=== PATIENT | female | born 1935 | race African-American/Black ===

== ENCOUNTER 2020-06-24 10:50 | Inpatient (IN) | payer MEDICARE, MEDICAID ==
[~2020-06-24] VITALS: Ht 162.6 cm; Wt 98.7 kg
[2020-06-24] MEDS ORDERED: DexAMETHasone SOD PHOS 10MG/1ML VIAL INJ IV ONE (14:45)
[2020-06-24] MEDS ORDERED: AZITHROMYCIN 500MG/ 250ML 250 ML IV ONE (14:45)
[2020-06-24 16:37] LABS: Basophils # (auto) 0 10 ^3/uL (0-0.2); Basophils % (auto) 0.3 % (0.0-2.0); Eosinophils # (auto) 0 10 ^3/uL (0-0.8); Hematocrit 42.4 % (36.0-46.0); Hemoglobin 14.3 g/dL (12.2-16.2); Lymphocytes # (auto) 0.6 10 ^3/uL (0.4-5.4); Lymphocytes % (auto) 4.8 % (10.0-50.0); Mean Corpuscular Hemoglobin 30.5 pg (28.0-32.0); Mean Corpuscular Hgb Conc. 33.6 g/dL (32.0-36.0); Mean Corpuscular Volume 90.8 fL (80.0-100.0); Monocytes # (auto) 0.4 10 ^3/uL (0-1.3); Monocytes % (auto) 3.3 % (0.0-12.0); Neutrophils # (auto) 11.5 10 ^3/uL (1.6-8.6); Neutrophils % (auto) 91.6 % (37.0-80.0); Nucleated Red Blood Cells % 2.2 %; Red Blood Cells 4.67 10^6/uL (4.0-5.20); Red Cell Distribution Width 15.8 % (11.8-14.3); White Blood Cell 12.6 10^3/uL (4.4-10.8)
[2020-06-24 16:40] LABS: INR 0.96 (0.9-1.15); Partial Thromboplastin Time 29.7 sec (23.0-31.2)
[2020-06-24 16:49] LABS: BUN/Creatinine Ratio 35.8; Calcium 7.8 mg/dL (8.5-10.1); Potassium 3.1 mmol/L (3.5-5.1)
[2020-06-24 16:55] LABS: Bilirubin, Total 0.9 mg/dL (0.2-1.0)
[2020-06-24] MEDS ORDERED: NITROGLYCERIN 0.4 MG SL TAB SL PRN (17:00)
[2020-06-24] MEDS ORDERED: MORPHINE SULFATE INJECTION 2 MG/ML SYRG IV PRN ×2 (17:00→19:00)
[2020-06-24 17:23] LABS: Albumin 2.2 g/dL (3.4-5.0)
[2020-06-24] MEDS ORDERED: traMADol HCL 50 MG TAB PO PRN (19:00)
[2020-06-24] MEDS ORDERED: ONDANSETRON HCL 4 MG/2 ML VIAL IV PRN (19:00)
[2020-06-24] MEDS ORDERED: ACETAMINOPHEN 500 MG TAB PO PRN (19:00)
[2020-06-24] MEDS ORDERED: cefTRIAXone 1GM/50ML D5W 50 ML IV ONE (19:00)
[2020-06-24] MEDS: SODIUM CHLORIDE 0.9% 1,000 ML IV SCH (20:43)
[2020-06-24] MEDS: BUDESONIDE (INHALATION) 180 MCG IH IN SCH (22:00)
[2020-06-24] MEDS: ATORVASTATIN 20 MG TAB PO SCH (23:32)
[2020-06-25] MEDS: SODIUM CHLORIDE 0.9% 1,000 ML IV SCH ×2 (05:49→15:04)
[2020-06-25 07:37] LABS: Basophils # (auto) 0 10 ^3/uL (0-0.2); Basophils % (auto) 0.2 % (0.0-2.0); Eosinophils # (auto) 0 10 ^3/uL (0-0.8); Hemoglobin 13.2 g/dL (12.2-16.2); Lymphocytes # (auto) 0.7 10 ^3/uL (0.4-5.4); Lymphocytes % (auto) 4.7 % (10.0-50.0); Mean Corpuscular Hemoglobin 29.4 pg (28.0-32.0); Mean Corpuscular Hgb Conc. 32.2 g/dL (32.0-36.0); Mean Corpuscular Volume 91.2 fL (80.0-100.0); Monocytes # (auto) 0.3 10 ^3/uL (0-1.3); Monocytes % (auto) 2.3 % (0.0-12.0); Neutrophils % (auto) 92.8 % (37.0-80.0); Nucleated Red Blood Cells % 1.9 %; Red Cell Distribution Width 15.9 % (11.8-14.3)
[2020-06-25 08:00] LABS: Calcium 7.5 mg/dL (8.5-10.1); Potassium 3.2 mmol/L (3.5-5.1)
[2020-06-25 08:04] LABS: Albumin 2.1 g/dL (3.4-5.0); BUN/Creatinine Ratio 40.2
[2020-06-25 08:08] LABS: Bilirubin, Total 0.7 mg/dL (0.2-1.0); Total Protein 7.7 g/dL (6.4-8.2)
[2020-06-25] MEDS: cefTRIAXone 1GM/50ML D5W 50 ML IV SCH (08:48)
[2020-06-25] MEDS: BUDESONIDE (INHALATION) 180 MCG IH IN SCH ×2 (09:33→19:41)
[2020-06-25] MEDS: DexAMETHasone SOD PHOS 10MG/1ML VIAL INJ IV SCH (10:03)
[2020-06-25] MEDS: AZITHROMYCIN 500MG/ 250ML 250 ML IV SCH (10:03)
[2020-06-25] MEDS: CHOLECALCIFEROL (VITD3) 2,000 UNIT CAP/TAB PO SCH (10:04)
[2020-06-25] MEDS: ZINC SULFATE 220mg CAP or TAB PO SCH (10:04)
[2020-06-25] MEDS: ASCORBIC ACID 1,000 MG TAB PO SCH (10:04)
[2020-06-25] MEDS: ENOXAPARIN SOD 30 MG/0.3 ML SYRINGE SC SCH (10:05)
[2020-06-25 10:53] LABS: Urine Bacteria FEW /hpf (None Seen); Urine Blood 1+ /uL (Negative); Urine Specific Gravity 1.012 (1.001-1.035); Urine WBC 309 /hpf (0 - 5); Urine WBC Clumps PRESENT /hpf (None Seen)
[2020-06-25 11:06] LABS: Creatinine, Urine 111 mg/dL (30.0-125.0); Sodium Urine 13 mmol/L (40-220)
[2020-06-25] MEDS ORDERED: FUROSEMIDE 100 MG/10ML VIAL IV ONE (18:45)
[2020-06-25] MEDS: DOPamine 1600MCG/ML D5W 250 ML IV SCH (19:37)
[2020-06-25] MEDS: ATORVASTATIN 20 MG TAB PO SCH (22:50)
[2020-06-26] MEDS: SODIUM CHLORIDE 0.9% 1,000 ML IV SCH ×3 (02:13→21:15)
[2020-06-26 07:40] LABS: Eosinophils # (auto) 0 10 ^3/uL (0-0.8); Monocytes # (auto) 0.7 10 ^3/uL (0-1.3)
[2020-06-26 07:43] LABS: Basophils # (auto) 0 10 ^3/uL (0-0.2); Basophils % (auto) 0.1 % (0.0-2.0); Hematocrit 41.5 % (36.0-46.0); Hemoglobin 13.7 g/dL (12.2-16.2); Lymphocytes # (auto) 0.8 10 ^3/uL (0.4-5.4); Lymphocytes % (auto) 4.4 % (10.0-50.0); Mean Corpuscular Hemoglobin 30.4 pg (28.0-32.0); Mean Corpuscular Hgb Conc. 33.1 g/dL (32.0-36.0); Mean Corpuscular Volume 91.8 fL (80.0-100.0); Monocytes % (auto) 3.7 % (0.0-12.0); Neutrophils # (auto) 16.2 10 ^3/uL (1.6-8.6); Neutrophils % (auto) 91.8 % (37.0-80.0); Nucleated Red Blood Cells % 1.8 %; Red Blood Cells 4.52 10^6/uL (4.0-5.20); Red Cell Distribution Width 16.3 % (11.8-14.3); White Blood Cell 17.7 10^3/uL (4.4-10.8)
[2020-06-26 08:02] LABS: Potassium 3.1 mmol/L (3.5-5.1)
[2020-06-26 08:13] LABS: Albumin 2.2 g/dL (3.4-5.0); BUN/Creatinine Ratio 47.2; Calcium 7.9 mg/dL (8.5-10.1)
[2020-06-26 08:16] LABS: Bilirubin, Total 0.5 mg/dL (0.2-1.0); Total Protein 8.2 g/dL (6.4-8.2)
[2020-06-26] MEDS: cefTRIAXone 1GM/50ML D5W 50 ML IV SCH (09:17)
[2020-06-26] MEDS: DexAMETHasone SOD PHOS 10MG/1ML VIAL INJ IV SCH (09:17)
[2020-06-26] MEDS: ASCORBIC ACID 1,000 MG TAB PO SCH (09:17)
[2020-06-26] MEDS: CHOLECALCIFEROL (VITD3) 2,000 UNIT CAP/TAB PO SCH (09:17)
[2020-06-26] MEDS: ZINC SULFATE 220mg CAP or TAB PO SCH (09:17)
[2020-06-26] MEDS: ENOXAPARIN SOD 30 MG/0.3 ML SYRINGE SC SCH (09:17)
[2020-06-26] MEDS: AZITHROMYCIN 500MG/ 250ML 250 ML IV SCH (10:23)
[2020-06-26 19:00] VITALS: BP 125/53
[2020-06-26] MEDS: DOPamine 1600MCG/ML D5W 250 ML IV SCH (19:12)
[2020-06-26] MEDS: SODIUM CHLOR 0.9% PF (SALINE LOCK) 10ML VIAL/SYR IV SCH (21:15)
[2020-06-26] MEDS: ATORVASTATIN 20 MG TAB PO SCH (21:15)
[2020-06-26] MEDS: BUDESONIDE (INHALATION) 180 MCG IH IN SCH ×2 (21:18→22:00)
[2020-06-27 03:18] VITALS: BP 125/53
[2020-06-27] MEDS: BUDESONIDE (INHALATION) 180 MCG IH IN SCH ×4 (06:22→18:19)
[2020-06-27] MEDS: SODIUM CHLORIDE 0.9% 1,000 ML IV SCH ×2 (07:00→16:05)
[2020-06-27 07:04] LABS: Hematocrit 39.4 % (36.0-46.0); Hemoglobin 13.2 g/dL (12.2-16.2); Mean Corpuscular Hemoglobin 30.3 pg (28.0-32.0); Mean Corpuscular Hgb Conc. 33.6 g/dL (32.0-36.0); Mean Corpuscular Volume 90.1 fL (80.0-100.0); Red Blood Cells 4.37 10^6/uL (4.0-5.20); White Blood Cell 12.1 10^3/uL (4.4-10.8)
[2020-06-27 07:26] LABS: Potassium 3.1 mmol/L (3.5-5.1)
[2020-06-27 07:31] LABS: Albumin 1.9 g/dL (3.4-5.0); BUN/Creatinine Ratio 47.2; Bilirubin, Total 0.6 mg/dL (0.2-1.0); Calcium 7.7 mg/dL (8.5-10.1); Total Protein 7.7 g/dL (6.4-8.2)
[2020-06-27 07:43] LABS: Blast Cells 0; Eosinophils % (manual) 0 (0-7); Promyelocytes % 0; Reactive Lymphocytes 0
[2020-06-27 07:54] VITALS: BP 124/80
[2020-06-27 08:45] LABS: Band Neutrophils % (manual) 6; Basophils % (manual) 1 (0.0-2.0); Lymphocytes % (manual) 3 (10.0-50.0); Metamyelocytes % 1; Monocytes % (manual) 3 (0-12); Myelocytes % 1
[2020-06-27] MEDS: cefTRIAXone 1GM/50ML D5W 50 ML IV SCH (09:00)
[2020-06-27] MEDS: CHOLECALCIFEROL (VITD3) 2,000 UNIT CAP/TAB PO SCH (10:00)
[2020-06-27] MEDS: SODIUM CHLOR 0.9% PF (SALINE LOCK) 10ML VIAL/SYR IV SCH ×2 (10:00→20:49)
[2020-06-27] MEDS: ASCORBIC ACID 1,000 MG TAB PO SCH (10:00)
[2020-06-27] MEDS: AZITHROMYCIN 500MG/ 250ML 250 ML IV SCH (10:00)
[2020-06-27] MEDS: ZINC SULFATE 220mg CAP or TAB PO SCH (10:00)
[2020-06-27] MEDS: ENOXAPARIN SOD 30 MG/0.3 ML SYRINGE SC SCH (10:00)
[2020-06-27] MEDS: DexAMETHasone SOD PHOS 10MG/1ML VIAL INJ IV SCH (12:16)
[2020-06-27] MEDS ORDERED: POTASSIUM EFFERVESENT TAB 25 MEQ PO ONE ×2 (13:00→13:15)
[2020-06-27 15:49] VITALS: BP 136/72
[2020-06-27] MEDS ORDERED: LORazepam 2MG/ML-1ML VIAL IV PRN (16:00)
[2020-06-27 16:14] LABS: Creatinine, Urine 129 mg/dL (30.0-125.0); Sodium Urine 11 mmol/L (40-220)
[2020-06-27] MEDS: ALBUTEROL SULF HFA 90MCG INH 200DOSE IN PRN (18:19)
[2020-06-27 18:26] VITALS: BP 127/79
[2020-06-27] MEDS: ATORVASTATIN 20 MG TAB PO SCH (20:49)
[2020-06-28] VITALS: BP 131/88
[2020-06-28] MEDS ORDERED: MONT10TA23 PO (02:39)
[2020-06-28] MEDS ORDERED: ATOR20TA PO (02:39)
[2020-06-28] MEDS ORDERED: METO25TA93 PO (02:39)
[2020-06-28] MEDS ORDERED: HYDR25TA4 PO (02:39)
[2020-06-28] MEDS ORDERED: LEVO25TA6 PO (02:39)
[2020-06-28] MEDS ORDERED: AMLO-489 PO (02:39)
[2020-06-28] MEDS ORDERED: ALLO100T PO (02:39)
[2020-06-28] MEDS ORDERED: CHOL20007 PO (02:39)
[2020-06-28] MEDS ORDERED: ALEN70TA74 PO (02:39)
[2020-06-28] MEDS: SODIUM CHLORIDE 0.9% 1,000 ML IV SCH ×3 (04:35→23:03)
[2020-06-28] MEDS: BUDESONIDE (INHALATION) 180 MCG IH IN SCH ×3 (06:30→20:18)
[2020-06-28 06:57] LABS: Hematocrit 43.9 % (36.0-46.0); Hemoglobin 14.4 g/dL (12.2-16.2); Mean Corpuscular Hemoglobin 29.5 pg (28.0-32.0); Mean Corpuscular Hgb Conc. 32.9 g/dL (32.0-36.0); Mean Corpuscular Volume 89.8 fL (80.0-100.0); Red Blood Cells 4.89 10^6/uL (4.0-5.20); Red Cell Distribution Width 16.2 % (11.8-14.3); White Blood Cell 13.3 10^3/uL (4.4-10.8)
[2020-06-28 07:03] LABS: Basophils % (manual) 0 (0.0-2.0); Blast Cells 0; Eosinophils % (manual) 0 (0-7); Promyelocytes % 0; Reactive Lymphocytes 0
[2020-06-28] MEDS: ALBUTEROL SULF HFA 90MCG INH 200DOSE IN PRN ×2 (07:05→20:18)
[2020-06-28 07:42] LABS: Band Neutrophils % (manual) 5; Lymphocytes % (manual) 10 (10.0-50.0); Metamyelocytes % 1; Monocytes % (manual) 2 (0-12); Myelocytes % 2
[2020-06-28 08:00] VITALS: BP 112/70
[2020-06-28] MEDS ORDERED: POTASSIUM CHL 20MEQ/100ML 100 ML IV ONE (09:30)
[2020-06-28] MEDS: ZINC SULFATE 220mg CAP or TAB PO SCH (09:57)
[2020-06-28] MEDS: SODIUM CHLOR 0.9% PF (SALINE LOCK) 10ML VIAL/SYR IV SCH ×2 (09:57→22:10)
[2020-06-28] MEDS: cefTRIAXone 1GM/50ML D5W 50 ML IV SCH (09:57)
[2020-06-28] MEDS: DexAMETHasone SOD PHOS 10MG/1ML VIAL INJ IV SCH (09:57)
[2020-06-28] MEDS: ASCORBIC ACID 1,000 MG TAB PO SCH (09:58)
[2020-06-28] MEDS: ENOXAPARIN SOD 30 MG/0.3 ML SYRINGE SC SCH (09:58)
[2020-06-28] MEDS: CHOLECALCIFEROL (VITD3) 2,000 UNIT CAP/TAB PO SCH (09:58)
[2020-06-28] MEDS: AZITHROMYCIN 500MG/ 250ML 250 ML IV SCH (11:07)
[2020-06-28 11:08] LABS: Potassium 4.2 mmol/L (3.5-5.1)
[2020-06-28 11:19] LABS: BUN/Creatinine Ratio 46.8; Calcium 8.4 mg/dL (8.5-10.1)
[2020-06-28] MEDS ORDERED: guaiFENesin-DM 100/10mg/5ml SYR PO PRN (12:00)
[2020-06-28] MEDS: ENSURE CLEAR Mixed Berry 8oz Carton PO SCH ×2 (13:55→18:11)
[2020-06-28 16:00] VITALS: BP 122/73
[2020-06-28] MEDS: DOPamine 1600MCG/ML D5W 250 ML IV SCH ×2 (17:54)
[2020-06-28] MEDS: FUROSEMIDE 100 MG/10ML VIAL IV SCH (17:55)
[2020-06-28] MEDS: ATORVASTATIN 20 MG TAB PO SCH (22:11)
[2020-06-29] VITALS: BP 115/78
[2020-06-29] MEDS: FUROSEMIDE 100 MG/10ML VIAL IV SCH ×2 (06:00→18:00)
[2020-06-29] MEDS: BUDESONIDE (INHALATION) 180 MCG IH IN SCH ×2 (06:05→19:17)
[2020-06-29 06:06] LABS: Mean Corpuscular Volume 90.7 fL (80.0-100.0)
[2020-06-29 06:16] LABS: Hemoglobin 14.1 g/dL (12.2-16.2); Mean Corpuscular Hemoglobin 30.5 pg (28.0-32.0); Mean Corpuscular Hgb Conc. 33.6 g/dL (32.0-36.0); Red Blood Cells 4.62 10^6/uL (4.0-5.20); Red Cell Distribution Width 16.2 % (11.8-14.3); White Blood Cell 13.5 10^3/uL (4.4-10.8)
[2020-06-29 06:30] LABS: Potassium 4.2 mmol/L (3.5-5.1)
[2020-06-29 06:36] LABS: BUN/Creatinine Ratio 56.5; Calcium 8.4 mg/dL (8.5-10.1)
[2020-06-29] MEDS: DOPamine 1600MCG/ML D5W 250 ML IV SCH ×2 (06:53→20:34)
[2020-06-29 06:56] LABS: Band Neutrophils % (manual) 0; Basophils % (manual) 0 (0.0-2.0); Blast Cells 0; Eosinophils % (manual) 0 (0-7); Metamyelocytes % 0; Myelocytes % 0; Promyelocytes % 0; Reactive Lymphocytes 0
[2020-06-29 08:00] VITALS: BP 114/77
[2020-06-29] MEDS: ENSURE CLEAR Mixed Berry 8oz Carton PO SCH ×3 (08:00→18:00)
[2020-06-29] MEDS: cefTRIAXone 1GM/50ML D5W 50 ML IV SCH (09:52)
[2020-06-29] MEDS: SODIUM CHLOR 0.9% PF (SALINE LOCK) 10ML VIAL/SYR IV SCH ×2 (09:52→21:24)
[2020-06-29] MEDS: ASCORBIC ACID 1,000 MG TAB PO SCH (09:53)
[2020-06-29] MEDS: SODIUM CHLORIDE 0.9% 1,000 ML IV SCH ×2 (09:53→18:34)
[2020-06-29] MEDS: CHOLECALCIFEROL (VITD3) 2,000 UNIT CAP/TAB PO SCH (09:53)
[2020-06-29] MEDS: ENOXAPARIN SOD 30 MG/0.3 ML SYRINGE SC SCH (09:53)
[2020-06-29] MEDS: ZINC SULFATE 220mg CAP or TAB PO SCH (09:53)
[2020-06-29 11:42] LABS: Lymphocytes % (manual) 5 (10.0-50.0); Monocytes % (manual) 4 (0-12)
[2020-06-29] MEDS: AZITHROMYCIN 500MG/ 250ML 250 ML IV SCH (11:49)
[2020-06-29 15:52] VITALS: BP 113/72
[2020-06-29] MEDS: ALBUTEROL SULF HFA 90MCG INH 200DOSE IN PRN (19:17)
[2020-06-29] MEDS: ATORVASTATIN 20 MG TAB PO SCH (21:24)
[2020-06-30] VITALS: BP 129/84
[2020-06-30] MEDS: FUROSEMIDE 100 MG/10ML VIAL IV SCH (05:34)
[2020-06-30 07:17] LABS: Calcium 8.5 mg/dL (8.5-10.1); Potassium 4.3 mmol/L (3.5-5.1)
[2020-06-30 07:20] LABS: BUN/Creatinine Ratio 54.3
[2020-06-30 08:00] VITALS: BP 126/69
[2020-06-30] MEDS: ENSURE CLEAR Mixed Berry 8oz Carton PO SCH ×3 (09:46→19:04)
[2020-06-30] MEDS: AZITHROMYCIN 500MG/ 250ML 250 ML IV SCH (09:47)
[2020-06-30] MEDS: cefTRIAXone 1GM/50ML D5W 50 ML IV SCH (09:47)
[2020-06-30] MEDS: BUDESONIDE (INHALATION) 180 MCG IH IN SCH ×2 (09:47→22:16)
[2020-06-30] MEDS: ZINC SULFATE 220mg CAP or TAB PO SCH (09:47)
[2020-06-30] MEDS: SODIUM CHLOR 0.9% PF (SALINE LOCK) 10ML VIAL/SYR IV SCH ×2 (09:47→22:00)
[2020-06-30] MEDS: ASCORBIC ACID 1,000 MG TAB PO SCH (09:48)
[2020-06-30] MEDS: CHOLECALCIFEROL (VITD3) 2,000 UNIT CAP/TAB PO SCH (09:48)
[2020-06-30] MEDS: ENOXAPARIN SOD 30 MG/0.3 ML SYRINGE SC SCH (09:48)
[2020-06-30] MEDS: DOPamine 1600MCG/ML D5W 250 ML IV SCH (10:06)
[2020-06-30 16:00] VITALS: BP 137/75
[2020-06-30] MEDS: ATORVASTATIN 20 MG TAB PO SCH (21:16)
[2020-06-30] MEDS: ALBUTEROL SULF HFA 90MCG INH 200DOSE IN PRN (22:16)
[2020-07-01] VITALS: BP 148/113
[2020-07-01] MEDS: ALBUTEROL SULF HFA 90MCG INH 200DOSE IN PRN ×2 (06:22→20:45)
[2020-07-01 08:00] VITALS: BP 120/80
[2020-07-01] MEDS: BUDESONIDE (INHALATION) 180 MCG IH IN SCH ×2 (09:08→20:45)
[2020-07-01] MEDS: ENSURE CLEAR Mixed Berry 8oz Carton PO SCH ×3 (09:08→18:00)
[2020-07-01] MEDS: cefTRIAXone 1GM/50ML D5W 50 ML IV SCH (09:08)
[2020-07-01] MEDS: ASCORBIC ACID 1,000 MG TAB PO SCH (09:09)
[2020-07-01] MEDS: ZINC SULFATE 220mg CAP or TAB PO SCH (09:09)
[2020-07-01] MEDS: AZITHROMYCIN 500MG/ 250ML 250 ML IV SCH (09:09)
[2020-07-01] MEDS: SODIUM CHLOR 0.9% PF (SALINE LOCK) 10ML VIAL/SYR IV SCH ×2 (09:09→21:10)
[2020-07-01] MEDS: CHOLECALCIFEROL (VITD3) 2,000 UNIT CAP/TAB PO SCH (09:10)
[2020-07-01] MEDS: ENOXAPARIN SOD 30 MG/0.3 ML SYRINGE SC SCH ×2 (09:10→21:10)
[2020-07-01] MEDS: FUROSEMIDE 100 MG/10ML VIAL IV SCH (09:30)
[2020-07-01 16:00] VITALS: BP 122/85
[2020-07-01] MEDS: D5W 5% 1,000 ML IV SCH (19:06)
[2020-07-01] MEDS: ATORVASTATIN 20 MG TAB PO SCH (21:10)
[2020-07-02] VITALS: BP 122/77
[2020-07-02] MEDS: BUDESONIDE (INHALATION) 180 MCG IH IN SCH ×2 (07:41→18:42)
[2020-07-02] MEDS: ALBUTEROL SULF HFA 90MCG INH 200DOSE IN PRN ×2 (07:42→18:42)
[2020-07-02 08:00] VITALS: BP 122/81
[2020-07-02 08:00] LABS: Calcium 9.3 mg/dL (8.5-10.1); Potassium 3.7 mmol/L (3.5-5.1)
[2020-07-02 08:02] LABS: BUN/Creatinine Ratio 47.6
[2020-07-02] MEDS: ENSURE CLEAR Mixed Berry 8oz Carton PO SCH ×3 (08:40→18:12)
[2020-07-02] MEDS: D5W 5% 1,000 ML IV SCH ×2 (08:40→21:24)
[2020-07-02 08:55] LABS: CRP High Sensitivity 7.93 mg/dL (< 0.3)
[2020-07-02] MEDS: SODIUM CHLOR 0.9% PF (SALINE LOCK) 10ML VIAL/SYR IV SCH ×2 (09:43→21:23)
[2020-07-02] MEDS: cefTRIAXone 1GM/50ML D5W 50 ML IV SCH (09:43)
[2020-07-02] MEDS: FUROSEMIDE 100 MG/10ML VIAL IV SCH (09:43)
[2020-07-02] MEDS: ZINC SULFATE 220mg CAP or TAB PO SCH (09:44)
[2020-07-02] MEDS: AZITHROMYCIN 500MG/ 250ML 250 ML IV SCH (09:44)
[2020-07-02] MEDS: ASCORBIC ACID 1,000 MG TAB PO SCH (09:44)
[2020-07-02] MEDS: ENOXAPARIN SOD 30 MG/0.3 ML SYRINGE SC SCH (09:44)
[2020-07-02] MEDS: CHOLECALCIFEROL (VITD3) 2,000 UNIT CAP/TAB PO SCH (09:44)
[2020-07-02 15:47] VITALS: BP 127/78
[2020-07-02] MEDS: ATORVASTATIN 20 MG TAB PO SCH (21:24)
[2020-07-02] MEDS: methylPREDNISolone SOD SUCC 40 MG/ML VL IV SCH (21:24)
[2020-07-03] VITALS: BP 128/79
[2020-07-03] MEDS: D5W 5% 1,000 ML IV SCH ×4 (00:03→18:10)
[2020-07-03] MEDS: BUDESONIDE (INHALATION) 180 MCG IH IN SCH ×2 (06:02→18:56)
[2020-07-03] MEDS: ALBUTEROL SULF HFA 90MCG INH 200DOSE IN PRN ×2 (06:03→18:57)
[2020-07-03 08:00] VITALS: BP 129/81
[2020-07-03] MEDS: ENSURE CLEAR Mixed Berry 8oz Carton PO SCH ×3 (08:00→18:10)
[2020-07-03] MEDS: cefTRIAXone 1GM/50ML D5W 50 ML IV SCH (09:32)
[2020-07-03] MEDS: ASCORBIC ACID 1,000 MG TAB PO SCH (09:33)
[2020-07-03] MEDS: SODIUM CHLOR 0.9% PF (SALINE LOCK) 10ML VIAL/SYR IV SCH ×2 (09:33→23:50)
[2020-07-03] MEDS: methylPREDNISolone SOD SUCC 40 MG/ML VL IV SCH ×2 (09:33→23:50)
[2020-07-03] MEDS: AZITHROMYCIN 500MG/ 250ML 250 ML IV SCH (09:33)
[2020-07-03] MEDS: ZINC SULFATE 220mg CAP or TAB PO SCH (09:33)
[2020-07-03] MEDS: CHOLECALCIFEROL (VITD3) 2,000 UNIT CAP/TAB PO SCH (09:34)
[2020-07-03] MEDS: ENOXAPARIN SOD 40 MG/0.4 ML SYRINGE SC SCH (09:34)
[2020-07-03] MEDS ORDERED: FUROSEMIDE 40 MG/4 ML VIAL IV SCH (10:00)
[2020-07-03] MEDS ORDERED: diphenhdrAMINE HCL 50 MG/1 ML VL IV PRN (11:00)
[2020-07-03] MEDS: DOPamine 1600MCG/ML D5W 250 ML IV SCH (13:55)
[2020-07-03] MEDS: FREE WATER GT SCH ×3 (14:00→23:49)
[2020-07-03 16:00] VITALS: BP 116/78
[2020-07-03] MEDS: ATORVASTATIN 20 MG TAB PO SCH (23:50)
[2020-07-04] VITALS: BP 127/64
[2020-07-04] MEDS: D5W 5% 1,000 ML IV SCH ×2 (02:44→07:15)
[2020-07-04] MEDS: FREE WATER GT SCH ×6 (02:44→22:26)
[2020-07-04 06:45] LABS: Basophils # (auto) 0 10 ^3/uL (0-0.2); Basophils % (auto) 0.3 % (0.0-2.0); Eosinophils # (auto) 0 10 ^3/uL (0-0.8); Hematocrit 39.2 % (36.0-46.0); Hemoglobin 12.4 g/dL (12.2-16.2); Lymphocytes # (auto) 0.5 10 ^3/uL (0.4-5.4); Lymphocytes % (auto) 4.5 % (10.0-50.0); Mean Corpuscular Hemoglobin 29.1 pg (28.0-32.0); Mean Corpuscular Hgb Conc. 31.7 g/dL (32.0-36.0); Mean Corpuscular Volume 91.8 fL (80.0-100.0); Monocytes # (auto) 0.2 10 ^3/uL (0-1.3); Neutrophils # (auto) 10.5 10 ^3/uL (1.6-8.6); Neutrophils % (auto) 93.2 % (37.0-80.0); Nucleated Red Blood Cells % 0.4 %; Red Blood Cells 4.27 10^6/uL (4.0-5.20); White Blood Cell 11.3 10^3/uL (4.4-10.8)
[2020-07-04 07:05] LABS: Calcium 8.6 mg/dL (8.5-10.1); Potassium 3.6 mmol/L (3.5-5.1)
[2020-07-04 07:07] LABS: BUN/Creatinine Ratio 47.7
[2020-07-04 08:00] VITALS: BP 131/75
[2020-07-04] MEDS: ENSURE CLEAR Mixed Berry 8oz Carton PO SCH ×3 (08:00→18:11)
[2020-07-04] MEDS: BUDESONIDE (INHALATION) 180 MCG IH IN SCH ×2 (08:46→19:31)
[2020-07-04] MEDS: ALBUTEROL SULF HFA 90MCG INH 200DOSE IN PRN ×2 (08:46→19:32)
[2020-07-04] MEDS: cefTRIAXone 1GM/50ML D5W 50 ML IV SCH (09:00)
[2020-07-04] MEDS: methylPREDNISolone SOD SUCC 40 MG/ML VL IV SCH ×2 (10:00→22:26)
[2020-07-04] MEDS: SODIUM CHLOR 0.9% PF (SALINE LOCK) 10ML VIAL/SYR IV SCH ×2 (10:00→22:26)
[2020-07-04] MEDS: ENOXAPARIN SOD 40 MG/0.4 ML SYRINGE SC SCH ×2 (10:00→22:27)
[2020-07-04] MEDS: ASCORBIC ACID 1,000 MG TAB PO SCH (10:00)
[2020-07-04] MEDS: CHOLECALCIFEROL (VITD3) 2,000 UNIT CAP/TAB PO SCH (10:00)
[2020-07-04] MEDS: AZITHROMYCIN 500MG/ 250ML 250 ML IV SCH (10:00)
[2020-07-04] MEDS: ZINC SULFATE 220mg CAP or TAB PO SCH (10:00)
[2020-07-04] MEDS: DOPamine 1600MCG/ML D5W 250 ML IV SCH (11:15)
[2020-07-04] MEDS: SOD CHL 0.45% 1,000 ML IV SCH ×2 (11:45→21:09)
[2020-07-04 16:00] VITALS: BP 110/62
[2020-07-04] MEDS: ATORVASTATIN 20 MG TAB PO SCH (22:27)
[2020-07-05] VITALS (8 sets, daily range): BP systolic 118–130; BP diastolic 70–81
[2020-07-05] MEDS: FREE WATER GT SCH ×6 (02:10→21:27)
[2020-07-05] MEDS: SOD CHL 0.45% 1,000 ML IV SCH ×3 (02:10→20:59)
[2020-07-05] MEDS: BUDESONIDE (INHALATION) 180 MCG IH IN SCH ×2 (07:05→19:38)
[2020-07-05] MEDS: ENSURE CLEAR Mixed Berry 8oz Carton PO SCH ×3 (08:00→18:00)
[2020-07-05 08:22] LABS: Potassium 3.7 mmol/L (3.5-5.1)
[2020-07-05 08:44] LABS: BUN/Creatinine Ratio 49.2; Calcium 8.4 mg/dL (8.5-10.1)
[2020-07-05] MEDS: cefTRIAXone 1GM/50ML D5W 50 ML IV SCH (09:30)
[2020-07-05] MEDS: ENOXAPARIN SOD 40 MG/0.4 ML SYRINGE SC SCH ×2 (09:31→21:00)
[2020-07-05] MEDS: ZINC SULFATE 220mg CAP or TAB PO SCH (09:31)
[2020-07-05] MEDS: ASCORBIC ACID 1,000 MG TAB PO SCH (09:31)
[2020-07-05] MEDS: CHOLECALCIFEROL (VITD3) 2,000 UNIT CAP/TAB PO SCH (09:31)
[2020-07-05] MEDS: AZITHROMYCIN 500MG/ 250ML 250 ML IV SCH (09:32)
[2020-07-05] MEDS: SODIUM CHLOR 0.9% PF (SALINE LOCK) 10ML VIAL/SYR IV SCH ×2 (09:32→21:00)
[2020-07-05] MEDS: methylPREDNISolone SOD SUCC 40 MG/ML VL IV SCH ×2 (09:32→20:59)
[2020-07-05] MEDS ORDERED: POTASSIUM EFFERVESENT TAB 25 MEQ PO ONE (10:00)
[2020-07-05] MEDS: DOPamine 1600MCG/ML D5W 250 ML IV SCH (11:15)
[2020-07-05] MEDS: ALBUTEROL SULF HFA 90MCG INH 200DOSE IN PRN (19:38)
[2020-07-05] MEDS: ATORVASTATIN 20 MG TAB PO SCH (20:59)
[2020-07-05] MEDS: FREE WATER PO SCH (22:00)
[2020-07-06] MEDS: FREE WATER PO SCH ×6 (02:00→21:51)
[2020-07-06 06:36] LABS: Potassium 3.8 mmol/L (3.5-5.1)
[2020-07-06] MEDS: BUDESONIDE (INHALATION) 180 MCG IH IN SCH ×2 (06:55→21:36)
[2020-07-06 07:18] LABS: BUN/Creatinine Ratio 53.2; Calcium 8.1 mg/dL (8.5-10.1)
[2020-07-06 08:00] VITALS: BP 135/82
[2020-07-06] MEDS: ENSURE CLEAR Mixed Berry 8oz Carton PO SCH ×3 (08:00→18:00)
[2020-07-06] MEDS: ASCORBIC ACID 1,000 MG TAB PO SCH (10:25)
[2020-07-06] MEDS: predniSONE 20 MG TAB PO SCH (10:25)
[2020-07-06] MEDS: ENOXAPARIN SOD 40 MG/0.4 ML SYRINGE SC SCH ×2 (10:26→21:48)
[2020-07-06] MEDS: ZINC SULFATE 220mg CAP or TAB PO SCH (10:26)
[2020-07-06] MEDS: CHOLECALCIFEROL (VITD3) 2,000 UNIT CAP/TAB PO SCH (10:26)
[2020-07-06] MEDS: SODIUM CHLOR 0.9% PF (SALINE LOCK) 10ML VIAL/SYR IV SCH ×2 (10:26→21:51)
[2020-07-06 16:00] VITALS: BP 147/81
[2020-07-06] MEDS: ALBUTEROL SULF HFA 90MCG INH 200DOSE IN PRN (21:36)
[2020-07-06] MEDS: ATORVASTATIN 20 MG TAB PO SCH (21:48)
[2020-07-06 23:53] VITALS: BP 136/76
[2020-07-07] MEDS: FREE WATER PO SCH ×5 (02:22→21:35)
[2020-07-07 08:00] VITALS: BP 140/88
[2020-07-07] MEDS: ALBUTEROL SULF HFA 90MCG INH 200DOSE IN PRN ×2 (09:10→20:18)
[2020-07-07] MEDS: BUDESONIDE (INHALATION) 180 MCG IH IN SCH ×2 (09:10→20:18)
[2020-07-07] MEDS: predniSONE 20 MG TAB PO SCH (09:22)
[2020-07-07] MEDS: SODIUM CHLOR 0.9% PF (SALINE LOCK) 10ML VIAL/SYR IV SCH ×2 (09:22→21:35)
[2020-07-07] MEDS: ENSURE CLEAR Mixed Berry 8oz Carton PO SCH ×3 (09:22→18:23)
[2020-07-07] MEDS: ENOXAPARIN SOD 40 MG/0.4 ML SYRINGE SC SCH ×2 (09:23→21:36)
[2020-07-07] MEDS: CHOLECALCIFEROL (VITD3) 2,000 UNIT CAP/TAB PO SCH (09:23)
[2020-07-07 11:42] LABS: Calcium 8.5 mg/dL (8.5-10.1); Potassium 3.8 mmol/L (3.5-5.1)
[2020-07-07 11:45] LABS: BUN/Creatinine Ratio 43.3
[2020-07-07 14:08] VITALS: BP 140/88
[2020-07-07 16:00] VITALS: BP 133/74
[2020-07-07] MEDS ORDERED: METH4PAK PO (18:43)
[2020-07-07] MEDS ORDERED: CHOL1CAP47 PO (18:44)
[2020-07-07] MEDS: ATORVASTATIN 20 MG TAB PO SCH (21:35)
[2020-07-08] VITALS: BP 151/85
[2020-07-08] MEDS: FREE WATER PO SCH ×5 (02:11→18:18)
[2020-07-08 07:26] LABS: BUN/Creatinine Ratio 46.2; Calcium 7.7 mg/dL (8.5-10.1); Potassium 3.6 mmol/L (3.5-5.1)
[2020-07-08] MEDS: ALBUTEROL SULF HFA 90MCG INH 200DOSE IN PRN ×2 (07:36→18:58)
[2020-07-08] MEDS: BUDESONIDE (INHALATION) 180 MCG IH IN SCH ×2 (07:36→18:58)
[2020-07-08 08:00] VITALS: BP 120/82
[2020-07-08] MEDS: ENSURE CLEAR Mixed Berry 8oz Carton PO SCH ×3 (09:19→18:19)
[2020-07-08] MEDS: SODIUM CHLOR 0.9% PF (SALINE LOCK) 10ML VIAL/SYR IV SCH (09:19)
[2020-07-08] MEDS: CHOLECALCIFEROL (VITD3) 2,000 UNIT CAP/TAB PO SCH (09:20)
[2020-07-08] MEDS: ENOXAPARIN SOD 40 MG/0.4 ML SYRINGE SC SCH (09:20)
[2020-07-08] MEDS: predniSONE 20 MG TAB PO SCH (09:20)
[2020-07-08 16:00] VITALS: BP 141/75
== END 2020-07-08 19:50 | disposition home or self-care (01) | DRG 871 ==
LOC: EDBD 10:50 → ER 10:50 → OVERFLOW 16:49 → TELE-WESTW 06-27 17:35
PROVIDERS: ADMIT Internal Medicine; ATTEND Internal Medicine Nephrology
PROC: 02HV33Z Insertion of Infusion Device into Superior Vena Cava, Percutaneous Approach (ICD-10-PCS; principal; 2020-06-26)
PROC: B548ZZA Ultrasonography of Superior Vena Cava, Guidance (ICD-10-PCS; 2020-06-26)
PROC: XW13325 Transfusion of Convalescent Plasma (Nonautologous) into Peripheral Vein, Percutaneous Approach, New Technology Group 5 (ICD-10-PCS; 2020-07-05)
DX: A41.89 Other specified sepsis (principal); U07.1 COVID-19; J12.82 Pneumonia due to coronavirus disease 2019; J96.01 Acute respiratory failure with hypoxia; N17.0 Acute kidney failure with tubular necrosis; E87.1 Hypo-osmolality and hyponatremia; I13.0 Hypertensive heart and chronic kidney disease with heart failure and stage 1 through stage 4 chronic kidney disease, or unspecified chronic kidney disease; J44.0 Chronic obstructive pulmonary disease with (acute) lower respiratory infection; E44.0 Moderate protein-calorie malnutrition; E87.0 Hyperosmolality and hypernatremia; N18.9 Chronic kidney disease, unspecified; E87.6 Hypokalemia; I50.9 Heart failure, unspecified; E78.5 Hyperlipidemia, unspecified; Z68.36 Body mass index [BMI] 36.0-36.9, adult; E66.9 Obesity, unspecified; K44.9 Diaphragmatic hernia without obstruction or gangrene; R65.20 Severe sepsis without septic shock; Z82.49 Family history of ischemic heart disease and other diseases of the circulatory system; Z85.528 Personal history of other malignant neoplasm of kidney; Z90.5 Acquired absence of kidney
CPT/HCPCS: 36415; 36569; 36600; 51702; 71045; 76775; 80048; 80053; 81001; 82550; 82570; 82728; 82805; 83036; 83605; 83615; 83735; 83880; 84300; 84443; 84484; 85007; 85025; 85027; 85379; 85610; 85652; 85730; 86141; 86850; 86900; 86901; 87040; 87086; 87426; 94640; 96365; 96366; 96375; 97110; 97116; 97163; 97530; G0378; J0696; J1100; J3480; J7042